=== PATIENT | male | born 1985 | race Caucasian/White ===

== ENCOUNTER → 2016-08-08 | Outpatient (CLI) | payer BC ==
[~2016-08-08] MED LIST: IBUP200T5 PO
== END | disposition home or self-care (01) ==
LOC: STAR 10:03
PROVIDERS: ATTEND Orthopaedic Surgery
DX: Z02.9 Encounter for administrative examinations, unspecified (principal)

== ENCOUNTER 2016-08-14 05:34 | Day surgery (SDC) | payer BC ==
[~2016-08-14] VITALS: Ht 182.9 cm; Wt 105.0 kg
[2016-08-14] MEDS ORDERED: LACTATED RINGERS 1,000 ML IV SCH (05:57)
[2016-08-14 05:58] VITALS: BP 144/94
[2016-08-14] MEDS ORDERED: LIDOCAINE 1%, 2ML SQ PRN (06:00)
[2016-08-14] MEDS ORDERED: ROPIvacaine/PF 0.5%, 30 ML ONE (06:21)
[2016-08-14] MEDS ORDERED: LIDOCAINE/PF 1%-EPI 1:200K, 30ML ONE (06:21)
[2016-08-14] MEDS ORDERED: FENTANYL PF 100 MCG/2ML ONE ×2 (06:25→08:23)
[2016-08-14] MEDS ORDERED: MIDAZOLAM 1 MG/ML, 2ML ONE (06:25)
[2016-08-14] MEDS ORDERED: KETAMINE 10 MG/ML, 20ML ONE (06:25)
[2016-08-14] MEDS ORDERED: ROPIvacaine/PF 0.5%, 20 ML ONE (06:27)
[2016-08-14] MEDS ORDERED: OXYcodone 5 MG/5 ML ORAL.SOL UDC ONE (08:23)
[2016-08-14] MEDS: FENTANYL PF 100 MCG/2ML IV PRN ×2 (08:25→08:35)
[2016-08-14] MEDS ORDERED: HYDROmorphone 1 MG/ML, 1ML IV PRN (08:30)
[2016-08-14] MEDS ORDERED: METOCLOPRAMIDE 5 MG/ML, 2ML IV PRN (08:30)
[2016-08-14] MEDS ORDERED: MEPERIDINE/PF 25MG/0.5ML IVPush PRN (08:30)
[2016-08-14] MEDS ORDERED: KETOROLAC 30 MG/1 ML IV PRN (08:30)
[2016-08-14] MEDS ORDERED: ACETAMINOPHEN 325 MG TABLET PO PRN (08:30)
[2016-08-14] MEDS ORDERED: OXYcodone 5 MG/5 ML ORAL.SOL UDC PO PRN (09:00)
[2016-08-14] MEDS ORDERED: CEFAZOLIN 1,000 MG ONE (10:48)
[2016-08-14] MEDS ORDERED: ONDANSETRON 2MG/ML, 2ML ONE (10:48)
[2016-08-14] MEDS ORDERED: PROPOFOL 10 MG/ML, 20ML ONE (10:48)
[2016-08-14] MEDS ORDERED: DEXAMETHASONE 4 MG/ML, 1ML ONE (10:48)
== END 2016-08-14 10:00 | disposition home or self-care (01) ==
LOC: OUT 05:34
PROVIDERS: ATTEND Orthopaedic Surgery
DX: S83.512A Sprain of anterior cruciate ligament of left knee, initial encounter (principal); S83.262A Peripheral tear of lateral meniscus, current injury, left knee, initial encounter; F17.210 Nicotine dependence, cigarettes, uncomplicated; E66.9 Obesity, unspecified; Z68.31 Body mass index [BMI] 31.0-31.9, adult; X58.XXXA Exposure to other specified factors, initial encounter; Y93.39 Activity, other involving climbing, rappelling and jumping off; Y92.9 Unspecified place or not applicable; Y99.9 Unspecified external cause status
CPT/HCPCS: 29881; 29888; C1713; J0690; J1100; J2250; J2405; J2704; J2795; J3010; J3490; J7120